=== PATIENT | female | born 1980 | race Caucasian/White ===

== ENCOUNTER 2021-11-21 21:45 | Emergency (ER) | payer SELFPAY ==
[~2021-11-21] VITALS: Ht 172.7 cm; Wt 104.3 kg
[2021-11-21] MEDS ORDERED: morphine INJ 10 MG/ML 1ML (SYR OR VIAL) IVP STA (22:43)
[2021-11-21] MEDS ORDERED: diphenhydrAMINE 50 MG/ML INJ (BENADRYL) IVP ONE ×2 (22:45→23:15)
[2021-11-21] MEDS ORDERED: PROMETHAZINE INJ 25 MG/ML (PHENERGAN) AMP IVP ONE (22:45)
[2021-11-21] MEDS ORDERED: BEBTELOVIMAB 175 MG/2 ML VIAL IV ONE (22:45)
[2021-11-21] MEDS ORDERED: methylPREDNISolone 125 MG (Solu-MEDROL) VIAL IVP ONE (22:45)
[2021-11-21] MEDS ORDERED: ENOXAPARIN 100 MG/1 ML (LOVENOX) SYR SC ONE (22:45)
[2021-11-21] MEDS ORDERED: NS IV 500 ML 500 ML ONE (22:54)
--- NOTE | 2021-11-21 22:58 | ED Respiratory ---
General Chief Complaint: COVID19 Suspect/Confirmed Stated Complaint: COVID, SOB Nursing Triage Note: pt to room by [facility]. pt transferred from [facility] for chest pain, sob, elevated d-dimer. pt also has covid-19 Source: patient, RN/MD (CARLITA Rodriguez at [facility]), EMS Exam Limitations: no limitations History of Present Illness Date Seen by Provider: Nov 21, 2021 Time Seen by Provider: 21:23 Initial Comments Patient to the ER by EMS from [facility] where the CARLITA called ahead stating that she came in for shortness of air swelling in her legs and chest pain. 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 She has failed Eliquis and warfarin therapy in the past and recently has been on Lovenox. For the past 2 weeks she has ran out of her Lovenox and could not afford to refill it. She is not having a productive cough. She was found to be positive for COVID-19. She says she had a few body aches and chills late last week when her symptoms started 5 days ago. She has not had any fever since. She is not having vomiting but she is having nausea. She received 25 mg of Benadryl and some IV fluids as well as lab work which will be referenced below. D-dimer was 922. Troponin T is 11 Sodium 134 Potassium 3.8 Chloride 103 CO2 20 Calcium 9.6 BUN 6 Creatinine 1.06 Glucose 97 Total protein 6.8 Albumin 4.1 Total bilirubin 0.2 Alkaline phosphatase 147 AST 20 ALT 18 Anion gap 11 WBC 7.1 RBC 3.78 Hemoglobin 10.1 Hematocrit 32.6 MCV 86.2 Platelets 236,000 Allergies and Home Medications Allergies Coded Allergies: Penicillins (Verified Allergy, Unknown, 11/21/21) droperidol (Verified Allergy, Unknown, 11/21/21) iodine (Verified Allergy, Unknown, 11/21/21) ketorolac (Verified Allergy, Unknown, 11/21/21) metoclopramide (Verified Allergy, Unknown, 11/21/21) ondansetron (Verified Allergy, Unknown, 11/21/21) prochlorperazine (Verified Allergy, Unknown, 11/21/21) sulfamethoxazole (Verified Allergy, Unknown, 11/21/21) trimethoprim (Verified Allergy, Unknown, 11/21/21) Physical Exam Vital Signs - First Documented 11/21/21 21:45 Temp 37.0 Pulse 105 Resp 19 B/P (MAP) 143/104 (117) Pulse Ox 97 Capillary Refill : Height: '" Weight: lbs. oz. kg; 34.00 BMI Method: Progress/Results/Core Measures Suspected Sepsis SIRS Temperature: Pulse: 105 Respiratory Rate: 19 Blood Pressure 143 /104 Mean: 117 Results/Orders Lab Results Laboratory Tests Test 11/21/21 23:40 11/22/21 01:46 Range/Units Magnesium Level 1.9 1.6-2.4 MG/DL Troponin I 0.033 H 0.033 H <0.028 NG/ML B-Type Natriuretic Peptide 19.4 <100.0 PG/ML My Orders Orders - ROZINA COTA Diphenhydramine Injection (Benadryl Inje (11/21/21 22:45) Morphine Injection (Morphine Injection (11/21/21 22:43) Ed Iv/Invasive Line Start (11/21/21 22:43) Methylprednisolone Sod Succ (Solu-Medrol (11/21/21 22:45) Bebtelovimab (Bebtelovimab) (11/21/21 22:45) Promethazine Injection (Phenergan Injec (11/21/21 22:45) Ct Angio Chest W (11/21/21 22:45) Enoxaparin Injection (Lovenox Injection) (11/21/21 22:45) Ed Iv/Invasive Line Start (11/21/21 22:52) Ns Iv 500 Ml (Sodium Chloride 0.9%) (11/21/21 23:00) Ns Iv 500 Ml (Sodium Chloride 0.9%) (11/21/21 22:54) Iohexol Injection (Omnipaque 350 Mg/Ml 1 (11/21/21 23:00) Received Contrast (Hold Metformin- Contr (11/21/21 23:00) Ns (Ivpb) (Sodium Chloride 0.9% Ivpb Bag (11/21/21 23:00) Troponin I Darlin (11/21/21 22:59) Bnp Darlin (11/21/21 22:59) Ekg Tracing (11/21/21 23:06) Continuous Ekg Monitoring (11/21/21 23:06) Diphenhydramine Injection (Benadryl Inje (11/21/21 23:15) Magnesium (11/21/21 23:08) Fentanyl Inj (Sublimaze Injection) (11/21/21 23:45) Lorazepam Tablet (Ativan Tablet) (11/21/21 23:42) Troponin I [place] (11/22/21 01:45) Medications Given in ED Current Medications Medications Dose Ordered Sig/Lou Route Start Time Stop Time Status Last Admin Dose Admin Bebtelovimab 175 mg ONCE ONCE IV 11/21/21 22:45 11/21/21 22:46 DC 11/21/21 23:52 175 MG Diphenhydramine HCl 50 mg ONCE ONCE IVP 11/21/21 22:45 11/21/21 22:46 DC 11/21/21 22:56 50 MG Diphenhydramine HCl 50 mg ONCE ONCE IVP 11/21/21 23:15 11/21/21 23:16 DC 11/21/21 23:23 50 MG Enoxaparin Sodium 100 mg ONCE ONCE SC 11/21/21 22:45 11/21/21 22:47 DC 11/21/21 22:57 100 MG Fentanyl Citrate 50 mcg ONCE ONCE IVP 11/21/21 23:45 11/21/21 23:46 DC 11/21/21 23:52 50 MCG Iohexol 100 ml ONCE ONCE IV 11/21/21 23:00 11/21/21 23:01 DC 11/22/21 00:02 100 ML Methylprednisolone Sodium Succinate 125 mg ONCE ONCE IVP 11/21/21 22:45 11/21/21 22:46 DC 11/21/21 22:57 125 MG Promethazine HCl 25 mg ONCE ONCE IVP 11/21/21 22:45 11/21/21 22:46 DC 11/21/21 22:56 25 MG Sodium Chloride 100 ml ONCE ONCE IV 11/21/21 23:00 11/21/21 23:01 DC 11/22/21 00:02 80 ML Sodium Chloride 500 ml @ 0 mls/hr Q0M ONCE IV 11/21/21 23:00 11/21/21 23:01 DC 11/21/21 22:57 0 MLS/HR Vital Signs/I&O 11/21/21 21:45 Temp 37.0 Pulse 105 Resp 19 B/P (MAP) 143/104 (117) Pulse Ox 97 11/22/21 00:00 Intake Total 500 ml Balance 500 ml Capillary Refill : Blood Pressure Mean: 117 Progress Note #1: Time: 23:04 Progress Note Patient is satting 97% with 16 respiratory rate and no labored breathing. She has requested oxygen because she says it makes her feel better so we put her on a nasal cannula at 1L/min. We will get a CT angiogram. We did establish an IV in her right AC using a ultrasound probe. We will repeat an EKG and a troponin since her last troponin was barely out of range to see how it compares to her troponin I. We will also get a BNP looking for heart strain. Because she has a stated history of iodine allergy she has tolerated it well as long she gets a dose of Solu-Medrol and Benadryl both before and after. We will give her some Phenergan and fluids for her nausea. Morphine 6 mg for her pain which is both in her chest as well as leg cramps. Finally we did discuss the use of a bebtelivoMab for her COVID-19. She is not actually needing any oxygen. The steroids are for her iodine allergy not for the COVID-19. She would be a candidate. It was explained to her that this is used under FDA's emergency use authorization and the risks, benefits and alternatives were discussed. The patient states she did use it before when she had COVID last year and had no problems with it and does desire the use of this medication again. Progress Note #2: Time: 23:41 Progress Note Less than an hour after she was given 6 mg morphine the patient states her pain is no better. She says typically it takes fentanyl or Dilaudid. She is quite anxious so we will give her a little Ativan and some fentanyl. Progress Note #3: Time: 02:15 Progress Note Repeat troponin is stable and consistent with the troponin from earlier in the night at [facility]. She states that she has Lovenox she also has to go pick it up and can have someone go get this for her in the next day. She will be provided with a prescription for some pain medicine and nausea medicine. ECG Initial ECG Impression Date: Nov 21, 2021 Initial ECG Impression Time: 19:16 Initial ECG Rate: 96 Initial ECG Rhythm: Normal Sinus Initial ECG Intervals: Normal Initial ECG Impression: Normal Comment Normal sinus rhythm without clinically relevant ST elevation or depression. EKG : EKG Time: 23:33 Rate: 110 Rhythm: S.Tach Intervals: Normal ECG Comparisson: Unchanged ECG Impression: Normal Comment Sinus tachycardia without clinically relevant ST changes. Diagnostic Imaging Diagonstic Imaging: CT Plain Films/CT/US/NM/MRI: chest Comments No acute intrathoracic findings. Reviewed: Reviewed by Me Departure Impression Primary Impression: COVID-19 Disposition: 01 HOME, SELF-CARE Condition: Stable Departure-Patient Inst. Decision time for Depature: 02:16 Patient Instructions: Bebtelovimab FDA Fact Sheet, COVID-19 Home Care/Discharge Add. Discharge Instructions: Drink plenty of fluids. Phenergan 1 tablet every 6 hours as needed for nausea or vomiting. Hydrocodone 1 tablet every 6 hours as needed for pain. Return to the ER promptly for shortness of air with oxygen saturations consistently below 90% or other worrisome symptoms. All discharge instructions reviewed with patient and/or family. Voiced understanding. Scripts Promethazine HCl (Promethazine Tablet) 25 Mg Tablet 25 MG PO Q6H PRN for NAUSEA/VOMITING, #20 TAB 0 Refills Prov: ROZINA COTA 11/22/21 Hydrocodone/Acetaminophen (Hydrocodone-Acetamin 5-325 mg) 5 Mg-325 Mg Tablet 1-2 TAB PO Q4H PRN for PAIN-MODERATE (5-7), #15 TAB 0 Refills Prov: ROZINA COTA 11/22/21 ROZINA COTA Nov 21, 2021 22:57
[2021-11-21] MEDS ORDERED: NS 100 ML (IVPB) BAG IV ONE (23:00)
[2021-11-21] MEDS ORDERED: HOLD METFORMIN - RECEIVED CONTRAST 20 ML VIAL IV SCH (23:00)
[2021-11-21] MEDS ORDERED: IOHEXOL 350 MG/ML 100 ML (OMNIPAQUE 350) VIAL IV ONE (23:00)
[2021-11-21] MEDS ORDERED: NS IV 500 ML 500 ML IV ONE (23:00)
[2021-11-21] MEDS ORDERED: LORazepam 0.5 MG (ATIVAN) TABLET PO STA (23:42)
[2021-11-21] MEDS ORDERED: fentaNYL INJ 100 MCG/2 ML AMP IVP ONE (23:45)
[2021-11-22 00:06] LABS: MAGNESIUM 1.9 MG/DL (1.6-2.4)
[2021-11-22 02:16] VITALS: BP 136/84
[2021-11-22] MEDS ORDERED: ACHD5005 PO (02:18)
[2021-11-22] MEDS ORDERED: PROM25TA14 PO (02:18)
[2021-11-22] MEDS ORDERED: fentaNYL INJ 100 MCG/2 ML AMP IVP ONE (02:30)
--- NOTE | 2021-11-22 07:22 | Diagnostic Imaging Report ---
PROCEDURE: CT angiography of the chest with contrast. TECHNIQUE: Multiple contiguous axial images were obtained through the chest after uneventful bolus administration of intravenous contrast. 3D reconstructed CTA MIP acquisitions were also performed. Auto Exposure Controls were utilized during the CT exam to meet ALARA standards for radiation dose reduction. DATE: November 21, 2021. COMPARISON: None. INDICATION: 41-year-old female, shortness of breath. COVID positive. FINDINGS: There is respiratory motion artifact. There is no identified pulmonary nodule or lung mass. There is no focal airspace consolidation. There is no pneumothorax. There is no pleural effusion. There is very limited evaluation for peripheral segmental and subsegmental pulmonary emboli given degree of motion artifact as well as timing the contrast bolus. There is no identified central pulmonary embolus. The heart is not enlarged. There is no pericardial effusion. There is no identified abnormally enlarged mediastinal, hilar, or axillary lymph node specifically meeting CT size criteria for adenopathy. There is an aberrant right subclavian artery. There is a very small hiatal hernia. There are collateral vessels in the anterior subcutaneous tissues at the level of the upper abdomen. There is a compression deformity of T8 without a visible fracture line which is technically indeterminate without comparison imaging. IMPRESSION: CT CHEST. 1. No identified central pulmonary embolus. Limited evaluation for more distal pulmonary emboli. 2. No otherwise identified acute cardiopulmonary abnormality. 3. Technically age indeterminate compression deformity of T8. Dictated by: Dictated on workstation # [id number]
== END 2021-11-22 02:38 | disposition home or self-care (01) ==
LOC: ER 22:14
DX: U07.1 COVID-19 (principal); T45.516A Underdosing of anticoagulants, initial encounter; Z73.0 Burn-out; Z86.2 Personal history of diseases of the blood and blood-forming organs and certain disorders involving the immune mechanism; Z86.718 Personal history of other venous thrombosis and embolism; Z86.711 Personal history of pulmonary embolism; Z91.120 Patient's intentional underdosing of medication regimen due to financial hardship; Z88.8 Allergy status to other drugs, medicaments and biological substances; Z79.899 Other long term (current) drug therapy; Z28.310 Unvaccinated for COVID-19
CPT/HCPCS: 36415; 71275; 83735; 83880; 84484; 93005

== ENCOUNTER 2021-12-03 20:56 | Emergency (ER) | payer MEDICAID ==
[~2021-12-03 20:56] MED LIST: ACHD5005 PO; PROM25TA14 PO
[2021-12-03 21:29] VITALS: BP 111/76
--- NOTE | 2021-12-03 21:37 | ED Chest Pain ---
General Stated Complaint: FACIAL SWELLING, L EAR PAIN, N/V,CP Source: patient Exam Limitations: no limitations (TOBIAS ANDINO) History of Present Illness Date Seen by Provider: Dec 03, 2021 Time Seen by Provider: 21:34 Initial Comments Patient is a 41-year-old female with a history of factor V Leiden, DVT, PE presents to ED with chest pain and shortness of breath. Pain is located bilateral chest and below her breast. Constant since Saturday described as sharp worse with deep inspiration. She does take Lovenox daily for PEs and Chronic DVTs. She has shortness of breath with deep inspiration. Denies abdominal pain, fever, chills or body ache. Just recently recovered from COVID last month. She also reports left-sided facial swelling over the past 3 days. Reports pain with eating that radiates to her left ear. she states she has poor left upper teeth that are decayed. She reports nausea and vomiting secondary to the pain and not being able to eat. Denies visual changes, diarrhea, abdominal pain, unilateral muscle weakness or sensory changes. Denies taking anything at home for pain. Denies any urinary symptoms or concern for . She does not have IVC filter. Denies of increased leg swelling. (TOBIAS ANDINO) Allergies and Home Medications Allergies Coded Allergies: Penicillins (Verified Allergy, Unknown, 11/21/21) droperidol (Verified Allergy, Unknown, 11/21/21) iodine (Verified Allergy, Unknown, 11/21/21) ketorolac (Verified Allergy, Unknown, 11/21/21) metoclopramide (Verified Allergy, Unknown, 11/21/21) ondansetron (Verified Allergy, Unknown, 11/21/21) prochlorperazine (Verified Allergy, Unknown, 11/21/21) sulfamethoxazole (Verified Allergy, Unknown, 11/21/21) trimethoprim (Verified Allergy, Unknown, 11/21/21) Patient Home Medication List Home Medication List Reviewed: Yes (TOBIAS ANDINO) Clindamycin HCl (Clindamycin HCl) 300 Mg Capsule, 300 MG PO QID Prescribed by: ONIEL MARX on 12/04/21 0018 Hydrocodone/Acetaminophen (Hydrocodone-Acetamin 5-325 mg) 5 Mg-325 Mg Tablet, 1- 2 TAB PO Q4H PRN for PAIN-MODERATE (5-7) Prescribed by: ROZINA COTA on 11/22/21217 Promethazine HCl (Promethazine Tablet) 25 Mg Tablet, 25 MG PO Q6H PRN for NAUSEA/VOMITING Prescribed by: ROZINA COTA on 11/22/21217 Review of Systems Review of Systems Constitutional: No chills, No diaphoresis, No malaise, No weakness EENTM: No Eye Pain Respiratory: Denies Cough; Shortness of Air; Denies SOA at Rest Cardiovascular: Chest Pain Gastrointestinal: Denies Abdomen Distended, Denies Abdominal Pain; Nausea, Vomiting Genitourinary: Denies Burning, Denies Discharge Musculoskeletal: No back pain, No joint pain Skin: No change in color, No change in hair/nails Psychiatric/Neurological: Denies Anxiety, Denies Depressed (TOBIAS ANDINO) All Other Systems Reviewed Negative Unless Noted: Yes (TOBIAS ANDINO) Physical Exam Vital Signs Vital Signs - First Documented 12/03/21 21:29 Temp 36.6 Pulse 103 Resp 16 B/P (MAP) 111/76 (88) Pulse Ox 97 O2 Delivery Room Air (FRANCISCO J,ONIEL K DO) Vital Signs Capillary Refill : (TOBIAS ANDINO) Height, Weight, BMI Height: '" Weight: lbs. oz. kg; 34.00 BMI Method: General Appearance: No Apparent Distress, WD/WN HEENT: PERRL/EOMI, TMs Normal, Normal ENT Inspection, Pharynx Normal, Other (poor teeth left upper dental with decay. No fluctuant mass) Neck: Full Range of Motion, Normal Inspection, Non Tender, Supple Respiratory: Chest Non Tender, Lungs Clear, Normal Breath Sounds, No Accessory Muscle Use Cardiovascular: Regular Rate, Rhythm, No Edema, No Gallop Gastrointestinal: Normal Bowel Sounds, No Organomegaly, No Pulsatile Mass, Non Tender Extremity: Normal Capillary Refill, Normal Inspection, Normal Range of Motion, Non Tender (TOBIAS ANDINO) Progress/Results/Core Measures Results/Orders Lab Results Laboratory Tests Test 12/03/21 23:21 Range/Units Urine Color YELLOW Urine Clarity CLEAR Urine pH 5.5 5-9 Urine Specific [place] 1.015 L 1.016-1.022 Urine Protein NEGATIVE NEGATIVE Urine Glucose (UA) NEGATIVE NEGATIVE Urine Ketones NEGATIVE NEGATIVE Urine Nitrite NEGATIVE NEGATIVE Urine Bilirubin NEGATIVE NEGATIVE Urine Urobilinogen 0.2 < = 1.0 MG/DL Urine Leukocyte Esterase NEGATIVE NEGATIVE Urine RBC (Auto) NEGATIVE NEGATIVE Urine RBC NONE /HPF Urine WBC NONE /HPF Urine Crystals NONE /LPF Urine Bacteria NEGATIVE /HPF Urine Casts NONE /LPF Urine Mucus NEGATIVE /LPF Urine Culture Indicated NO Urine Opiates Screen POSITIVE H NEGATIVE Urine Oxycodone Screen NEGATIVE NEGATIVE Urine Methadone Screen NEGATIVE NEGATIVE Urine Propoxyphene Screen NEGATIVE NEGATIVE Urine Barbiturates Screen NEGATIVE NEGATIVE Ur Tricyclic Antidepressants Screen NEGATIVE NEGATIVE Urine Phencyclidine Screen NEGATIVE NEGATIVE Urine Amphetamines Screen NEGATIVE NEGATIVE Urine Methamphetamines Screen NEGATIVE NEGATIVE Urine Benzodiazepines Screen NEGATIVE NEGATIVE Urine Cocaine Screen NEGATIVE NEGATIVE Urine Cannabinoids Screen NEGATIVE NEGATIVE (ONIEL MARX DO) My Orders Orders - ONIEL MARX DO Alcohol (12/03/21 22:59) Amylase (12/03/21 22:59) Drug Screen Stat (Urine) (12/03/21 22:59) Lipase (12/03/21 22:59) Ua Culture If Indicated (12/03/21 22:59) Promethazine Tablet (Phenergan Tablet) (12/04/21 00:15) Clindamycin Capsule (Cleocin Capsule) (12/04/21 00:15) (ONIEL MARX DO) Vital Signs/I&O 12/03/21 21:29 Temp 36.6 Pulse 103 Resp 16 B/P (MAP) 111/76 (88) Pulse Ox 97 O2 Delivery Room Air (ONIEL MARX DO) Departure Communication (PCP) Patient complained of chest pain and left upper dental pain. Decay noted to his left upper molars concerning for dental infection. No palpable abscess. No significant facial swelling or redness. She has nausea with pain that radiates to the left ear. She also complaining of bilateral chest pain over the past 3 days. History of DVT and PE currently takes Lovenox daily. Due to her current complaints of chest pain recommended lab work EKG and further cardiac evaluation. EKG without evidence of ST elevation depression. Patient is a difficult IV stick stick. Attempted multiple times unsuccessful with ultrasound for a peripheral. She has scar tissue around her EJ's. She did have a port in the past but states that they get clotted secondary to factor V Leiden. Clots were removed. She states she has been taking her Lovenox daily. She reports chronic DVT. Further evaluation will be needed secondary to the chest pain. Anesthesia was contacted to help successfully place a line as multiple attempts failed here. Attempted to get just a blood drawl but was unsuccessful as well. She did not appear toxic or septic. She did not appear in severe pain. She was given dose of fentanyl as she is allergic to multiple medications. Patient was discussed with Dr. MARX who took over care at 11 PM (TOBIAS ANDINO) Impression Primary Impression: Nausea Additional Impression: Dental infection Disposition: HOME, SELF-CARE Condition: Stable Departure-Patient Inst. Decision time for Depature: 00:17 (ONIEL MARX DO) Referrals: NO,LOCAL PHYSICIAN (PCP/Family) Primary Care Physician Patient Instructions: Nausea and Vomiting, Adult ED, Tooth Abscess ED Add. Discharge Instructions: FOLLOW UP WITH YOUR REGULAR DR TOMORROW FOR FURTHER CARE FOLLOW UP WITH A DENTIST THIS WEEK Scripts Clindamycin HCl (Clindamycin HCl) 300 Mg Capsule 300 MG PO QID for 7 Days, #28 CAP Prov: ONIEL MARX DO 12/04/21 TOBIAS ANDINO Dec 03, 2021 21:37 ONIEL MARX DO Dec 04, 2021 00:18
[2021-12-03] MEDS ORDERED: ASPIRIN 81 MG CHEW (CHILDREN'S ASA) PO ONE (21:45)
[2021-12-03] MEDS ORDERED: fentaNYL INJ 100 MCG/2 ML AMP IM STA (22:22)
[2021-12-03 23:29] LABS: BILIRUBIN,URINE NEGATIVE (NEGATIVE); CLARITY,URINE CLEAR; COLOR,URINE YELLOW; GLUCOSE, URINE (UA) NEGATIVE (NEGATIVE); KETONES,URINE NEGATIVE (NEGATIVE); LEUKOCYTE ESTERASE ,URINE NEGATIVE (NEGATIVE); NITRITE,URINE NEGATIVE (NEGATIVE); PH,URINE 5.5 (5-9); PROTEIN,URINE NEGATIVE (NEGATIVE)
[2021-12-03 23:45] LABS: AMPHETAMINE SCREEN, URINE NEGATIVE (NEGATIVE); BACTERIA,URINE NEGATIVE /HPF; BARBITURATE SCREEN URINE NEGATIVE (NEGATIVE); BENZODIAZEPINES SCREEN URINE NEGATIVE (NEGATIVE); CANNABINOID SCREEN, URINE NEGATIVE (NEGATIVE); COCAINE SCREEN URINE NEGATIVE (NEGATIVE); METHADONE STAT NEGATIVE (NEGATIVE); OPIATE SCREEN URINE POSITIVE (NEGATIVE); OXYCODONE STAT NEGATIVE (NEGATIVE); PROPOXYPHENE STAT NEGATIVE (NEGATIVE); TRICYCLIC ANTIDEPRESSANTS SCRE NEGATIVE (NEGATIVE)
[2021-12-04] MEDS ORDERED: PROMETHAZINE 25 MG (PHENERGAN) TAB PO ONE (00:15)
[2021-12-04] MEDS ORDERED: CLINDAMYCIN 150 MG (CLEOCIN) CAP PO ONE (00:15)
[2021-12-04] MEDS ORDERED: CLIN-144 PO (00:18)
--- NOTE | 2021-12-04 06:08 | Diagnostic Imaging Report ---
EXAMINATION: Chest 1 view HISTORY: Chest pain COMPARISON: None available. FINDINGS: Heart size and pulmonary vasculature are normal. The lungs are clear without consolidation, pleural effusion, or pneumothorax. The osseous structures are intact. IMPRESSION: 1. No acute radiographic abnormality in the chest. Dictated by: Dictated on workstation # [id number]
== END 2021-12-04 00:48 | disposition home or self-care (01) ==
LOC: EDUNIT# 20:56 → ER 20:58
DX: K04.7 Periapical abscess without sinus (principal); R11.2 Nausea with vomiting, unspecified; Z86.718 Personal history of other venous thrombosis and embolism; Z86.16 Personal history of COVID-19; Z28.310 Unvaccinated for COVID-19; Z79.01 Long term (current) use of anticoagulants
CPT/HCPCS: 71045; 80306; 81000; 93005